=== PATIENT | female | born 1975 | race Caucasian/White ===

== ENCOUNTER 2021-06-27 18:00 | Outpatient (CLI) | payer SELFPAY | END 2021-06-27 18:01 | disposition short-term general hospital (02) | LOC: EMS 18:00 | DX: S09.93XA Unspecified injury of face, initial encounter (principal); S02.5XXA Fracture of tooth (traumatic), initial encounter for closed fracture; W01.198A Fall on same level from slipping, tripping and stumbling with subsequent striking against other object, initial encounter; Y93.89 Activity, other specified; Y92.832 Beach as the place of occurrence of the external cause | CPT/HCPCS: A0425; A0429 ==